=== PATIENT | male | born 1940 | race Caucasian/White ===

== ENCOUNTER 2022-03-31 05:25 | Inpatient (IN) | payer MEDICARE ==
[~2022-03-31] VITALS: Ht 195.6 cm; Wt 103.0 kg
[~2022-03-31 05:25] MED LIST: epiNEPHrine 1 mg/ml inj ONE
[2022-03-31] MEDS ORDERED: famotidine/PF 10 mg/ml inj IV ONE (05:30)
[2022-03-31] MEDS ORDERED: dexamethasone 4mg/ml inj IV ONE (05:30)
[2022-03-31] MEDS ORDERED: LIDOcaine 4% (40 mg/ml) topical solution 50ml MM ONE (05:40)
--- NOTE | 2022-03-31 08:06 | NUR ---
Patient up to bathroom at this time, gait steady, slow r/t "bad knees", and balanced, son at bedside, no signs of distress noted.
[2022-03-31] MEDS ORDERED: diphenhydrAMINE 25mg capsule PO PRN (08:10)
[2022-03-31] MEDS ORDERED: magnesium hydroxide 30ml (MOM) UD suspension PO PRN (08:10)
[2022-03-31] MEDS ORDERED: ondansetron/PF 4mg/2ml inj IV PRN (08:10)
[2022-03-31] MEDS ORDERED: magnesium 4gm in 100ml NS 100 ML IV PRN (08:10)
[2022-03-31] MEDS ORDERED: POTASSIUM BICARB 20meq eff tab 20 MEQ TABLET.EFF PO PRN ×2 (08:10)
[2022-03-31] MEDS ORDERED: mag hydrox/Alum hydrox/simeth 30ml oral suspension PO PRN (08:10)
[2022-03-31] MEDS ORDERED: potassium CL 10mEq/100ml bag 100 ML IV PRN (08:10)
[2022-03-31] MEDS ORDERED: magnesium Cl slow-release 64mg tablet PO PRN (08:10)
[2022-03-31] MEDS ORDERED: acetaminophen 325mg tablet PO PRN (08:10)
[2022-03-31] MEDS ORDERED: diphenhydrAMINE 50 mg/ml inj IV PRN (08:10)
[2022-03-31] MEDS ORDERED: magnesium 2GM in 50ml NS 50 ML IV PRN (08:10)
[2022-03-31] MEDS ORDERED: epiNEPHrine 1 mg/ml inj SQ PRN (08:15)
[2022-03-31 08:39] LABS: BASOPHILS # (AUTO) 0.1 X10'3 (0-0.2); BASOPHILS % (AUTO) 0.4 % (0-1); EOSINOPHILS % (AUTO) 0.1 % (0-6); HEMATOCRIT 42.7 % (42.0-52.0); HEMOGLOBIN 13.8 g/dl (14.0-17.9); LYMPHOCYTES # (AUTO) 0.7 X10'3 (1.1-4.8); LYMPHOCYTES % (AUTO) 4.2 % (21-51); MEAN CORPUSCULAR HGB CONC 32.4 g/dL (33.0-36.5); MEAN CORPUSCULAR VOLUME 80.2 FL (78-98); MEAN PLATELET VOLUME 9.5 FL (7.4-10.4); MONOCYTES # (AUTO) 0.3 X10'3 (0-0.9); MONOCYTES % (AUTO) 2.2 % (2-12); NEUTROPHILS # (AUTO) 14.7 X10'3 (1.8-7.7); NEUTROPHILS % (AUTO) 93.1 % (42-75); PLATELET COUNT 237 X10'3 (140-440); RED BLOOD COUNT 5.32 X10'6 (4.70-6.10); WHITE BLOOD COUNT 15.7 X10'3 (4.5-11.0)
[2022-03-31 08:53] LABS: ALANINE AMINOTRANSFERASE 16 U/L (12-78); ALBUMIN 3.5 G/DL (3.4-5.0); ALBUMIN/GLOBULIN RATIO 0.9 (1.1-1.5); ALKALINE PHOSPHATASE 117 IU/L (46-116); ANION GAP 11 (8-16); ASPARTATE AMINO TRANSFERASE 14 U/L (10-37); BILIRUBIN,TOTAL 0.3 MG/DL (0.1-1.0); BLOOD UREA NITROGEN 25 MG/DL (7-18); BUN/CREATININE RATIO 19.1 (5.4-32.0); CALCIUM 8.8 MG/DL (8.5-10.1); CHLORIDE 104 MMOL/L (99-107); CREATININE 1.31 MG/DL (0.60-1.10); GLUCOSE 187 MG/DL (70-104); MAGNESIUM 1.6 MG/DL (1.5-2.4); POTASSIUM 3.9 MMOL/L (3.5-5.1); SODIUM 138 MMOL/L (135-145); TOTAL PROTEIN 7.6 G/DL (6.4-8.2); eGFR 53 ML/MIN
[2022-03-31 11:57] VITALS: BP 163/74
[2022-03-31] MEDS ORDERED: LISI1TAB51 PO (12:55)
[2022-03-31 18:00] VITALS: BP 151/77
--- NOTE | 2022-03-31 19:14 | NUR ---
Problems reprioritized. Patient report given, questions answered & plan of care reviewed with abraham ro.
[2022-03-31] MEDS: docusate sod 100mg capsule PO SCH (20:00)
[2022-03-31] MEDS: K and/or MAG REPLACEMENT MC SCH (20:00)
[2022-03-31 22:00] VITALS: BP 129/65
[2022-04-01 06:00] VITALS: BP 117/65
--- NOTE | 2022-04-01 06:20 | NUR ---
Problems reprioritized. Patient report given, questions answered & plan of care reviewed with Alma Rosa ROBLEDO.
[2022-04-01 06:21] LABS: BASOPHILS % (AUTO) 0.1 % (0-1); EOSINOPHILS % (AUTO) 0 % (0-6); HEMATOCRIT 40.1 % (42.0-52.0); HEMOGLOBIN 13.1 g/dl (14.0-17.9); LYMPHOCYTES # (AUTO) 1.3 X10'3 (1.1-4.8); LYMPHOCYTES % (AUTO) 6.9 % (21-51); MEAN CORPUSCULAR HEMOGLOBIN 26.2 PG (27.0-31.0); MEAN CORPUSCULAR HGB CONC 32.7 g/dL (33.0-36.5); MEAN CORPUSCULAR VOLUME 80.3 FL (78-98); MEAN PLATELET VOLUME 9.3 FL (7.4-10.4); MONOCYTES # (AUTO) 0.9 X10'3 (0-0.9); MONOCYTES % (AUTO) 4.7 % (2-12); NEUTROPHILS # (AUTO) 16.8 X10'3 (1.8-7.7); NEUTROPHILS % (AUTO) 88.3 % (42-75); PLATELET COUNT 230 X10'3 (140-440); WHITE BLOOD COUNT 19.1 X10'3 (4.5-11.0)
[2022-04-01 06:41] LABS: ALANINE AMINOTRANSFERASE 14 U/L (12-78); ALBUMIN 3.3 G/DL (3.4-5.0); ALBUMIN/GLOBULIN RATIO 0.9 (1.1-1.5); ALKALINE PHOSPHATASE 98 IU/L (46-116); ANION GAP 9 (8-16); ASPARTATE AMINO TRANSFERASE 16 U/L (10-37); BILIRUBIN,TOTAL 0.5 MG/DL (0.1-1.0); BLOOD UREA NITROGEN 24 MG/DL (7-18); BUN/CREATININE RATIO 20.9 (5.4-32.0); CALCIUM 8.9 MG/DL (8.5-10.1); CHLORIDE 107 MMOL/L (99-107); CREATININE 1.15 MG/DL (0.60-1.10); GLUCOSE 132 MG/DL (70-104); MAGNESIUM 1.7 MG/DL (1.5-2.4); SODIUM 141 MMOL/L (135-145); TOTAL CARBON DIOXIDE 24.6 MMOL/L (24-32); TOTAL PROTEIN 7.1 G/DL (6.4-8.2); eGFR 61 ML/MIN
[2022-04-01] MEDS: K and/or MAG REPLACEMENT MC SCH (06:59)
[2022-04-01] MEDS: docusate sod 100mg capsule PO SCH (07:28)
[2022-04-01] MEDS: nystatin 15 GM powder TP SCH ×2 (07:29→13:09)
[2022-04-01] MEDS ORDERED: HYDROchlorothiazide 12.5mg capsule PO SCH (08:00)
[2022-04-01] MEDS ORDERED: losartan 50mg tablet PO SCH (08:00)
[2022-04-01] MEDS ORDERED: enoxaparin 40mg/0.4ml syringe SUBCUT SCH (08:00)
[2022-04-01 10:47] VITALS: BP 165/63
[2022-04-01] MEDS ORDERED: [UNRECOGNIZED DRUG - CODE] SQ (13:28)
[2022-04-01] MEDS ORDERED: NYSPWD TP (13:28)
[2022-04-01] MEDS ORDERED: LEVO-65 PO (13:28)
[2022-04-01] MEDS ORDERED: LOSA50TA64 PO (13:30)
[2022-04-01] MEDS ORDERED: HYDROchlorothiazide tablet PO (13:30)
[2022-04-01 14:00] VITALS: BP 131/58
--- NOTE | 2022-04-01 16:03 | NUR ---
PT DISCHARGED IN STABLE CONDITION. LEFT FACILITY IN PRIVATE VEHICLE WITH SON. IV DC CANULA INTACT. FOLLOW UP INSTRUCTIONS GIVEN, ALL QUESTIONS ANSWERED. ALL BELONGINGS IN HAND INCLUDING WRITTEN RX. Addendum: 04/01/22 at 1604 by aCrmen Turner RN Amended: Links added.
== END 2022-04-01 16:00 | disposition home or self-care (01) | DRG 916 ==
LOC: ER 05:26 → ED HOLD 08:14 → ORTHO 4S 10:28
PROVIDERS: ADMIT Internal Medicine; ATTEND Internal Medicine
PROC: BW2F1ZZ Computerized Tomography (CT Scan) of Neck using Low Osmolar Contrast (ICD-10-PCS; principal; 2022-04-01)
DX: T78.3XXA Angioneurotic edema, initial encounter (principal); I10 Essential (primary) hypertension; Z60.2 Problems related to living alone; D72.829 Elevated white blood cell count, unspecified; R59.0 Localized enlarged lymph nodes; M17.0 Bilateral primary osteoarthritis of knee; T46.4X5A Adverse effect of angiotensin-converting-enzyme inhibitors, initial encounter; Y92.89 Other specified places as the place of occurrence of the external cause; Z88.0 Allergy status to penicillin; Z98.42 Cataract extraction status, left eye; Z98.41 Cataract extraction status, right eye
CPT/HCPCS: 36415; 70491; 71045; 76536; 80053; 83735; 85025; 87081; 93005; 99291; 99292; G0378; J0171; J1100; J1650; J3490

== ENCOUNTER 2024-12-10 09:50 | Emergency (ER) | payer MEDICARE ==
[~2024-12-10] VITALS: Ht 195.6 cm; Wt 102.3 kg
[~2024-12-10 09:50] MED LIST changes: +HYDROchlorothiazide tablet PO; +LOSA50TA64 PO; +NYSPWD TP; +[UNRECOGNIZED DRUG - CODE] SQ; -epiNEPHrine 1 mg/ml inj ONE
[2024-12-10 10:13] VITALS: BP 160/69; PULSE 66; RESP 18; O2SAT 97
[2024-12-10] MEDS ORDERED: IBUP-1984 PO (10:39)
[2024-12-10] MEDS ORDERED: BACL10TA2 PO (10:39)
[2024-12-10] MEDS ORDERED: LIDO700A32 TD (10:39)
[2024-12-10 10:53] VITALS: TEMP 98.5
== END 2024-12-10 10:54 | disposition home or self-care (01) ==
LOC: ER 09:51
DX: M54.50 Low back pain, unspecified (principal); I10 Essential (primary) hypertension; Z88.0 Allergy status to penicillin
CPT/HCPCS: 99283